=== PATIENT | female | born 1965 | race Caucasian/White ===

== ENCOUNTER 2020-08-12 17:15 | Observation (INO) ==
[2020-08-12] MEDS ORDERED: cefTRIAXone 1 GM VIAL IV ONE (17:30)
[2020-08-12] MEDS ORDERED: 0.9 % SODIUM CHLORIDE 1,000 ML IV ONE (17:32)
--- NOTE | 2020-08-12 17:37 | Emergency Department Note ---
Abdominal Pain HPI General Chief Complaint: Abdominal Pain Stated Complaint: Appendicitis Time Seen by Provider: 08/12/20 17:30 Source: patient, RN notes reviewed, old records reviewed and other Mode of arrival: ambulatory Limitations: no limitations History of Present Illness HPI Narrative: Narrative: 55-year-old female complaining of abdominal pain since Saturday. Moderate diffuse abdominal pain greatest in the right lower quadrant. No fevers or chills no nausea vomiting no hematuria dysuria or frequency no vaginal discharge or bleeding no diarrhea no anorexia. Patient was seen in minor care with a work-up including labs and abdominal CT. Abdominal CT is positive for early appendicitis. Dr. Dumont has been consulted. Patient has past surgical history of hysterectomy. Last meal was a sandwich at 2 PM. Complaint: abdominal pain Onset (ago): day(s) (3) Consistency: constant Location: RLQ Severity: moderate Quality: aching and dull Migration to: no migration Improves with: nothing Worsens with: nothing Associated symptoms: Reports nausea; Denies vomiting, diarrhea, fever, chills, constipation, dysuria, hematemesis, hematochezia, melena, hematuria, anorexia and syncope Treatments prior to arrival: other Related Data Home Medications Medication Instructions Recorded Confirmed ibuprofen 800 mg tablet 800 mg PO ONCE PRN 09/28/15 08/12/20 fluticasone furoate 100 1 inh INHALATION QDAY 07/08/18 08/12/20 mcg-vilanterol 25 mcg/dose inhalation powder Previous Rx's Medication Instructions Recorded albuterol sulfate 90 mcg/actuation 90 mcg INHALATION Q6H #18 g 10/07/15 aerosol inhaler levothyroxine 75 mcg tablet 75 mcg PO QDAY #90 tab 08/11/19 Allergies Allergy/AdvReac Type Severity Reaction Status Date / Time montelukast [From Singulair] Allergy Unknown Rash on Verified 08/12/20 11:33 face MSG Allergy Unknown Headache Uncoded 08/12/20 11:33 Review of Systems ROS ROS Narrative: Narrative: All systems ED: reviewed and negative except as stated. PFSH Narrative Patient History Narrative: Narrative: Medical/Surgical/Family History All Active Problems (Updated 08/12/20 @ 18:12 by Hipolito Altamirano MD) Appendicitis (Acute) Abdominal pain (Acute) Viral syndrome (Acute) Fatigue (Acute) Urinary frequency (Acute) History of hysterectomy for benign disease (Acute) Myocardial infarction (Acute) Psoriasis (Chronic) Migraines (Chronic) Kidney stones (Chronic) Asthma (Chronic) Acid reflux (Chronic) Medical History Abdominal pain Acid reflux 2010 Asthma 1970 Fatigue Heart trouble 2007 Kidney stones 2007 Migraines 1998 Psoriasis 1985 Urinary frequency Viral syndrome Surgical History H/O bladder repair surgery 2014 H/O heart bypass surgery 2007 History of hysterectomy 2010 Family History Grandmother-maternal Arthritis Diabetes mellitus Cerebrovascular accident (CVA) Uncle-maternal Diabetes mellitus Grandfather-paternal Essential hypertension Myocardial Infarction Cerebrovascular accident (CVA) Father Myocardial Infarction Cerebrovascular accident (CVA) Brother Myocardial Infarction Grandfather-maternal Cerebrovascular accident (CVA) Grandmother-paternal Cerebrovascular accident (CVA) Social History Smoking Status: Never smoker Alcohol Intake Frequency: does not drink Substance Use: does not use Exam Narrative Narrative: Narrative: General Limitations: no limitations General appearance: Present alert and in no apparent distress Head Head: Present atraumatic and normocephalic Eye Eye: Present normal appearance, PERRL and EOMI ENT ENT: Present normal exam and mucous membranes moist Neck Neck: Present normal inspection and full ROM Chest Chest: Present normal inspection; Absent tenderness Respiratory Respiratory: Present normal lung sounds bilaterally; Absent respiratory distress Cardiovascular Cardiovascular: Present regular rate and normal rhythm; Absent systolic murmur Adbominal Abdominal: Present soft, tenderness, normal bowel sounds and tenderness at McBurney's Point; Absent distention, guarding and rebound Extremities Extremities: Present normal inspection and full ROM; Absent tenderness, pedal edema and pretibial edema Back Back: Present normal inspection; Absent CVA tenderness (R) and CVA tenderness (L) Neurological Neurological: Present alert and oriented X3 Psychiatric Psychiatric: Present normal affect and normal mood Skin Skin: Present warm (WNL); Absent rash Course Vital Signs Vital signs: Vital Signs Temperature 99.9 F H 08/12/20 17:16 Pulse Rate 78 08/12/20 17:16 Respiratory Rate 18 08/12/20 17:16 Blood Pressure 129/85 08/12/20 17:16 Pulse Oximetry (%) 98 08/12/20 17:16 Temperature 99.9 F H 08/12/20 17:16 Pulse Rate 78 08/12/20 17:16 Respiratory Rate 18 08/12/20 17:16 Blood Pressure 129/85 08/12/20 17:16 Pulse Oximetry (%) 98 08/12/20 17:16 MDM MDM Narrative Medical decision making narrative: Narrative: Discharge Plan Patient/Caregiver Discharge Instructions 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
[2020-08-12] MEDS ORDERED: morphine 2 MG/ML VIAL IV ONE (18:03)
[2020-08-12] MEDS ORDERED: ONDANSETRON 4 MG/2 ML VIAL IV ONE (18:03)
[2020-08-12] MEDS ORDERED: morphine 4 MG/ML VIAL IV PRN (18:04)
[2020-08-12] MEDS ORDERED: PROMETHAZINE 25 MG/ML VIAL IV PRN (20:07)
[2020-08-12] MEDS ORDERED: ONDANSETRON 4 MG/2 ML VIAL IV PRN (20:07)
[2020-08-12] MEDS ORDERED: diphenhydrAMINE 25 MG CAPSULE PO PRN (20:13)
[2020-08-12] MEDS: ALBUTEROL SULFATE 200 PUFF INHALER INH SCH (20:37)
[2020-08-12] MEDS ORDERED: DOCUSATE SODIUM 100 MG CAPSULE PO SCH (21:00)
[2020-08-12] MEDS ORDERED: SENNOSIDES 1 TABLET PO SCH (21:00)
[2020-08-12] MEDS: FAMOTIDINE/PF 20 MG/2 ML VIAL IV SCH (21:02)
[2020-08-12] MEDS: 0.9 % SODIUM CHLORIDE 10 ML SYRINGE IV SCH (21:02)
[2020-08-12] MEDS: 0.9 % SODIUM CHLORIDE 1,000 ML IV SCH (21:02)
[2020-08-12] MEDS ORDERED: 0.9 % SODIUM CHLORIDE 10 ML SYRINGE IV SCH (22:00)
[2020-08-12] MEDS: HYDROmorphone 0.5 MG/0.5 ML SYRINGE IV PRN (22:05)
[2020-08-13] MEDS: ONDANSETRON 4 MG/2 ML VIAL IV PRN ×2 (01:16→08:41)
[2020-08-13] MEDS: HYDROmorphone 0.5 MG/0.5 ML SYRINGE IV PRN ×2 (01:17→04:51)
[2020-08-13] MEDS: ALBUTEROL SULFATE 200 PUFF INHALER INH SCH ×4 (03:07→20:58)
[2020-08-13] MEDS: 0.9 % SODIUM CHLORIDE 1,000 ML IV SCH ×4 (04:51→23:59)
[2020-08-13] MEDS: 0.9 % SODIUM CHLORIDE 10 ML SYRINGE IV SCH ×3 (05:21→20:24)
[2020-08-13 06:34] LABS: Basophils # (Auto) 0.08 K/mcL (0.00-0.20); Basophils % (Auto) 0.8 % (0.0-2.0); Eosinophils # (Auto) 0.06 K/mcL (0.00-0.70); Eosinophils % (Auto) 0.6 % (0.0-7.0); Hematocrit 39.6 % (36.0-48.0); Lymphocytes # (Auto) 2.45 K/mcL (1.50-4.80); Lymphocytes % (Auto) 25.4 % (15.0-49.0); Mean Cell Volume 97.5 fL (80.0-100.0); Mean Corpuscular HGB Conc 32.8 g/dL (31.0-36.0); Mean Platelet Volume 9.8 fL (7.4-10.4); Monocytes # (Auto) 0.73 K/mcL (0.10-0.90); Monocytes % (Auto) 7.6 % (1.0-12.0); Neutrophils % (Auto) 65.6 % (38.0-78.0); Platelet Count 273 K/mcL (140-440); RBC 4.06 M/mcL (4.00-5.20); Red Cell Distribution Width 13.1 % (11.5-14.5); WBC 9.7 K/mcL (4.5-11.0)
[2020-08-13 06:56] LABS: ALT/SGPT 10 U/L (<40); AST/SGOT 13 U/L (<32); Albumin 3.5 gm/dL (3.2-5.2); Albumin/Globulin Ratio 1.3 (1.0-2.3); Alkaline Phosphatase 69 U/L (39-117); Bilirubin,Direct < 0.2 mg/dL (0-0.3); Bilirubin,Total 0.3 mg/dL (0.1-1.0); Blood Urea Nitrogen 10 mg/dL (6-20); Carbon Dioxide 21 mmol/L (22-30); Chloride 104 mmol/L (96-108); Globulin 2.6 gm/dL (2.2-3.7); Glomerular Filtration Rate 103; Glucose 121 mg/dL (70-105); Lactate Dehydrogenase 145 U/L (135-225); Phosphorous 3.6 mg/dL (2.5-4.5); Triglycerides 53 mg/dL (<150); Uric Acid 2.2 mg/dL (2.5-8.0)
[2020-08-13] MEDS: FAMOTIDINE/PF 20 MG/2 ML VIAL IV SCH ×2 (08:41→20:58)
--- NOTE | 2020-08-13 09:09 | XRay Report ---
HISTORY: Preop for appendicitis, coronary artery disease FINDINGS: Lungs are mildly hyperinflated. There are linear bands of scar or discoid atelectasis in left lower lobe. There is no evidence of emphysema, pneumonia or mass. The heart is normal in size and contour. There has been a prior sternotomy with coronary bypass surgery. No congestive heart failure is present. Mediastinum and jessica are normal. IMPRESSION: Mildly hyperinflated lungs. Scar versus discoid atelectasis at the left lung base Interpreted and Authenticated by: Demario Cavazos 08/13/20
--- NOTE | 2020-08-13 09:36 | General Surg History&Physical ---
HPI History of Present Illness Patient information: Note initiated : 08/13/20 at 9:26 am Service Date, if different from initiated Date: [] Patient: Regi Alicea 55 y/o F admitted on 08/12/20 for Appendicitis. Chief Complaint: [] Chief complaint: Right lower quadrant abdominal pain History of present illness: Ms. Alicea is a 55 year old F history of onset of pain diffusely in her lower abdomen on Saturday. The pain was crampy in nature with some associated diarrhea. She had onset of nausea on Saturday with episodes of vomiting. The right lower quadrant symptoms increased and she was seen in the emergency room were her initial labs including white blood count and CRP were normal however CT was compatible with thickened appendiceal wall but no periappendiceal edema. She was admitted last evening and has been on antibiotics. She is scheduled for appendectomy this morning. Patient and her were counseled for the procedure. Constitutional Constitutional: Present anorexia and malaise EENT Eyes: Absent loss of vision and pain Ears: Absent decreased hearing and tinnitus Nose, mouth and throat: Present headache(s); Absent abnormal hearing, disequilibrium, dysphagia and hoarseness Cardiovascular Cardiovascular: Absent chest pain, chest pain at rest, chest pain with activity, dyspnea on exertion, edema, irregular heart rhythm, leg edema, lightheadedness, palpatations, paroxysmal nocturnal dyspnea, pedal edema and rapid heart rate Respiratory Respiratory: Absent cough, dyspnea, wheezing and chest congestion Gastrointestinal Gastrointestinal: Present abdominal pain, cramping, diarrhea, loose stools, nausea and vomiting; Absent heartburn Genitourinary Genitourinary: Absent difficulty voiding, nocturia, urinary frequency, urinary hesitancy, urinary incontinence and urinary urgency Musculoskeletal Musculoskeletal: Present arthralgias, muscle cramps and myalgias; Absent abnormal gait, muscle weakness and numbness Integumentary Integumentary: Absent acne, alopecia and pruritus Neurological Neurological: Present headache(s), restless legs and tingling; Absent abnormal gait, dizziness, numbness, sensory deficit and tremor(s) Psychiatric Psychiatric: Present abnormal sleep pattern; Absent mood swings and panic attacks Endocrine Endocrine: Absent fatigue, heat intolerance, polydipsia, polyphagia and polyuria Hematologic/Lymphatic Hematologic/Lymphatic: Absent easy bleeding, easy bruising and lymphadenopathy Allergic/Immunologic Allergic/Immunologic: Absent tongue swelling, throat swelling, itchy eyes, u ticaria, wheezing and lip swelling PFSH PFSH All Active Problems (Updated 08/13/20 @ 09:35 by Gurwinder Dumont MD) Acute appendicitis (Acute) Appendicitis (Acute) Abdominal pain (Acute) Viral syndrome (Acute) Fatigue (Acute) Urinary frequency (Acute) History of hysterectomy for benign disease (Acute) Myocardial infarction (Acute) Psoriasis (Chronic) Migraines (Chronic) Kidney stones (Chronic) Asthma (Chronic) Acid reflux (Chronic) Medical History Abdominal pain Acid reflux 2010 Asthma 1970 Fatigue Heart trouble 2007 Kidney stones 2007 Migraines 1997 Psoriasis 1985 Urinary frequency Viral syndrome Surgical History H/O bladder repair surgery 2014 H/O heart bypass surgery 2007 History of hysterectomy 2010 Family History Grandmother-maternal Arthritis Diabetes mellitus Cerebrovascular accident (CVA) Uncle-maternal Diabetes mellitus Grandfather-paternal Essential hypertension Myocardial Infarction Cerebrovascular accident (CVA) Father Myocardial Infarction Cerebrovascular accident (CVA) Brother Myocardial Infarction Grandfather-maternal Cerebrovascular accident (CVA) Grandmother-paternal Cerebrovascular accident (CVA) Social History marital status: smoking status: Never smoker alcohol intake frequency: does not drink substance use type: does not use MEDS/ALLERGIES Home Medications and Allergies Home Medications Medication Instructions Recorded Confirmed Type ibuprofen 800 mg tablet 800 mg PO ONCE PRN 09/28/15 08/12/20 History albuterol sulfate 90 mcg/actuation 90 mcg INHALATION Q6H #18 g 10/07/15 08/12/20 Rx aerosol inhaler fluticasone furoate 100 1 inh INHALATION QDAY 07/08/18 08/12/20 History mcg-vilanterol 25 mcg/dose inhalation powder levothyroxine 75 mcg tablet 75 mcg PO QDAY #90 tab 08/11/19 08/12/20 Rx Allergies Allergy/AdvReac Type Severity Reaction Status Date / Time montelukast [From Singulair] Allergy Unknown Rash on Verified 08/12/20 11:33 face MSG Allergy Unknown Headache Uncoded 08/12/20 11:33 Physical Examination Vital Signs Vital signs: Temp Pulse Resp BP Pulse Ox 97.8 F 55 L 16 105/67 95 08/13/20 07:09 08/13/20 07:09 08/13/20 07:09 08/13/20 07:09 08/13/20 07:09 General physical appearance General physical exam: well developed, well nourished, no distress and moderate pain Eyes Eye exam: PERRL and normal ocular movement ENT ENT exam: normal pinna, normal nares, normal mucosa, no hearing loss and no congestion Head Head exam IM: Present atraumatic, normal inspection and normocephalic Neck Neck exam: no masses, no bruits, trachea midline, no lymphadenopathy and no venous distension Cardiovascular Cardiovascular exam IM: Present normal rate and rhythm, RRR, +S1 and +S2; Absent bradycardia and JVD Respiratory Respiratory exam: normal expansion, normal respiratory effort and clear to auscultation Abdomen Abdomen: Present soft, tender (Right lower quadrant and suprapubic area) and bowel sounds Integumentary Integumentary: Present no rash, no growths and no abnormal pigmentation Neurologic Neurologic: Present normal coordination and normal sensation Musculoskeletal Musculoskeletal: Present normal gait and normal posture Psychiatric Psychiatric: Present oriented to time, oriented to person, oriented to place, speech is normal and memory intact Results Labs Result diagrams: 08/13/20 05:25 08/13/20 05:25 Labs: Abnormal lab results 08/13/20 Range/Units 05:25 Carbon Dioxide 21 L (22-30) mmol/L Glucose 121 H (70-105) mg/dL Uric Acid 2.2 L (2.5-8.0) mg/dL Calcium 8.0 L (8.6-10.4) mg/dL Diabetes panel 08/13/20 Range/Units 05:25 Sodium 134 (133-145) mmol/L Potassium 4.1 (3.3-5.1) mmol/L Chloride 104 (96-108) mmol/L Carbon Dioxide 21 L (22-30) mmol/L BUN 10 (6-20) mg/dL Creatinine 0.6 (0.6-1.1) mg/dL Glucose 121 H (70-105) mg/dL Calcium 8.0 L (8.6-10.4) mg/dL AST 13 (<32) U/L ALT 10 (<40) U/L Alkaline Phosphatase 69 (39-117) U/L Total Protein 6.1 (5.9-8.4) gm/dL Albumin 3.5 (3.2-5.2) gm/dL Triglycerides 53 (<150) mg/dL Calcium panel 08/13/20 Range/Units 05:25 Calcium 8.0 L (8.6-10.4) mg/dL Phosphorus 3.6 (2.5-4.5) mg/dL Albumin 3.5 (3.2-5.2) gm/dL Pituitary panel 08/13/20 Range/Units 05:25 Sodium 134 (133-145) mmol/L Potassium 4.1 (3.3-5.1) mmol/L Chloride 104 (96-108) mmol/L Carbon Dioxide 21 L (22-30) mmol/L BUN 10 (6-20) mg/dL Creatinine 0.6 (0.6-1.1) mg/dL Glucose 121 H (70-105) mg/dL Calcium 8.0 L (8.6-10.4) mg/dL Adrenal panel 08/13/20 Range/Units 05:25 Sodium 134 (133-145) mmol/L Potassium 4.1 (3.3-5.1) mmol/L Chloride 104 (96-108) mmol/L Carbon Dioxide 21 L (22-30) mmol/L BUN 10 (6-20) mg/dL Creatinine 0.6 (0.6-1.1) mg/dL Glucose 121 H (70-105) mg/dL Calcium 8.0 L (8.6-10.4) mg/dL Total Bilirubin 0.3 (0.1-1.0) mg/dL AST 13 (<32) U/L ALT 10 (<40) U/L Alkaline Phosphatase 69 (39-117) U/L Total Protein 6.1 (5.9-8.4) gm/dL Albumin 3.5 (3.2-5.2) gm/dL All other labs normal. A/P Assessment and plan (1) Acute appendicitis: Status: Acute Qualifiers: Acute appendicitis type: with localized peritonitis Appendicitis gangrene presence: without gangrene Appendicitis perforation presence: without perforation Appendicitis abscess presence: without abscess Qualified Code(s): K35.30 - Acute appendicitis with localized peritonitis, without perforation or gangrene (2) Acid reflux: Status: Chronic Comment: 2010 Qualifiers: Esophagitis presence: esophagitis presence not specified Qualified Code(s): K21.9 - Gastro-esophageal reflux disease without esophagitis Narrative A/P Narrative: Patient is counseled for laparoscopic appendectomy It will be performed later today. Time Spent With Patient Time: Total time spent is greater than 50% in coordination of care (as documented) at patient's floor/unit and/or counseling patient:
[2020-08-13] MEDS ORDERED: ONDANSETRON 4 MG/2 ML VIAL ONE (10:25)
[2020-08-13] MEDS ORDERED: MIDAZOLAM 5 MG/5 ML VIAL ONE (10:25)
[2020-08-13] MEDS ORDERED: SUGAMMADEX SODIUM 200 MG/2 ML VIAL IV ONE (10:25)
[2020-08-13] MEDS ORDERED: KETAMINE 100 MG/ML ML ONE (10:25)
[2020-08-13] MEDS ORDERED: LIDOCAINE HCL/PF 100 MG/5 ML SYRINGE IV ONE (10:25)
[2020-08-13] MEDS ORDERED: ROCURONIUM 10 MG/ML ML IV ONE (10:25)
[2020-08-13] MEDS ORDERED: fentaNYL 100 MCG/2 ML VIAL IV ONE (10:25)
[2020-08-13] MEDS ORDERED: PROMETHAZINE 25 MG/ML VIAL ONE (10:25)
[2020-08-13] MEDS ORDERED: DEXAMETHASONE 10 MG/ML VIAL ONE (10:25)
[2020-08-13] MEDS ORDERED: PROPOFOL 200 MG/20 ML VIAL IV ONE (10:25)
[2020-08-13] MEDS ORDERED: SUCCINYLCHOLINE 20 MG/ML ML IV ONE (10:25)
[2020-08-13] MEDS ORDERED: PIPERACILLIN SODIUM/TAZOBACTAM 3.375 GM in DEXTROSE 5% IN WATER 50 ML IV SCH (11:00)
[2020-08-13] MEDS ORDERED: ATROPINE SULFATE 0.4 MG/ML VIAL IV PRN (11:01)
[2020-08-13] MEDS ORDERED: METOPROLOL TARTRATE 5 MG/5 ML VIAL IV PRN (11:01)
[2020-08-13] MEDS ORDERED: FLUMAZENIL 0.1 MG/ML ML IV PRN (11:01)
[2020-08-13] MEDS ORDERED: NALOXONE HCL 0.4 MG/ML VIAL IV PRN (11:01)
[2020-08-13] MEDS ORDERED: METHOCARBAMOL 1,000 MG/10 ML VIAL IV PRN (11:01)
[2020-08-13] MEDS ORDERED: IPRATROPIUM/ALBUTEROL 3 ML AMPUL.NEB NEB PRN (11:01)
[2020-08-13] MEDS ORDERED: HYDROmorphone 0.5 MG/0.5 ML SYRINGE IV PRN ×2 (11:01→12:09)
[2020-08-13] MEDS ORDERED: ACETAMINOPHEN 800 MG/80 ML BAG IV ONE (11:01)
[2020-08-13] MEDS ORDERED: MEPERIDINE 25 MG/ML VIAL IV PRN (11:01)
[2020-08-13] MEDS ORDERED: fentaNYL 100 MCG/2 ML VIAL IV PRN (11:01)
[2020-08-13] MEDS ORDERED: ePHEDrine 50 MG/ML AMPUL IV PRN (11:01)
[2020-08-13] MEDS ORDERED: PROMETHAZINE 25 MG/ML VIAL IV PRN ×2 (11:01→12:09)
[2020-08-13] MEDS ORDERED: diphenhydrAMINE 50 MG/ML VIAL IV PRN (11:01)
--- NOTE | 2020-08-13 11:26 | Brief Operative Note ---
Brief Operative Note Date of procedure: 08/13/20 Pre-op diagnosis: acute appendicitis Post-op diagnosis: other (acute appendicitis) Procedure: laparoscopic appendectomy Grafts/Implants: No Anesthesia: GETA Findings: mild inflammation of appendix Complications: none Surgeon: Gurwinder Dumont Specimens Removed/Pathology: other (appendix) Condition: stable Disposition: PACU
[2020-08-13] MEDS ORDERED: oxyCODONE HCL 5 MG TABLET PO PRN (12:09)
[2020-08-13] MEDS ORDERED: ONDANSETRON 4 MG/2 ML VIAL IV PRN (12:09)
[2020-08-13] MEDS: PIPERACILLIN SODIUM/TAZOBACTAM 3.375 GM in DEXTROSE 5% IN WATER 50 ML IV SCH ×2 (17:37→23:58)
[2020-08-13] MEDS ORDERED: IBUPROFEN 200 MG TABLET PO PRN (17:48)
[2020-08-13] MEDS ORDERED: IBUPROFEN 600 MG TABLET PO ONE (18:08)
[2020-08-13] MEDS ORDERED: diphenhydrAMINE 25 MG CAPSULE PO PRN (21:00)
[2020-08-14] MEDS: ALBUTEROL SULFATE 200 PUFF INHALER INH SCH ×2 (04:42→10:59)
[2020-08-14] MEDS: 0.9 % SODIUM CHLORIDE 1,000 ML IV SCH ×2 (04:43→13:16)
[2020-08-14] MEDS: 0.9 % SODIUM CHLORIDE 10 ML SYRINGE IV SCH ×2 (04:44→14:20)
[2020-08-14] MEDS: PIPERACILLIN SODIUM/TAZOBACTAM 3.375 GM in DEXTROSE 5% IN WATER 50 ML IV SCH ×2 (06:11→12:01)
[2020-08-14] MEDS ORDERED: LEVOTHYROXINE 75 MCG TABLET PO SCH (07:30)
[2020-08-14] MEDS: FAMOTIDINE/PF 20 MG/2 ML VIAL IV SCH (09:05)
--- NOTE | 2020-08-14 14:12 | Discharge Summary ---
Discharge Provider Provider Patient information: Note initiated : 08/14/20 at 2:07 pm Service Date, if different from initiated Date: [] Patient: Regi Alicea 55 y/o F admitted on 08/12/20 for Appendicitis. Chief Complaint: [] Date of admission: 08/12/20 19:46 Discharge date: 08/14/20 Primary care physician: Wolfgang Cox MD Admitting clinician: Gurwinder Dumont Attending physician on admission: Gurwinder Dumont Consults: 08/12/20 Consult to Physician [CONS] Stat Comment: Consulting Provider: Gurwinder Dumont Reason For Exam: Physician to Consult Attending physician on discharge: Gurwinder Dumont Discharging clinician: Gurwinder Dumont COURSE Hospital Course Hospital course: 55-year-old female who presents with a 3-day history of abdominal pain across the epigastrium and into her shoulder. She had nausea vomiting. White blood count and CRP were normal. CT of the abdomen and pelvis was compatible with early appendicitis. She was admitted and observed overnight. She had laparoscopic appendectomy on yesterday. She states that all of her symptoms have resolved except for mild incisional pain. She is tolerated soft diet without difficulty and is stable for discharge home. Discharge diagnosis: Acute appendicitis Reason for admission: Acute appendicitis Procedures: Laparoscopic appendectomy Pertinent studies/significant findings: CT of abdomen and pelvis with contrast Complications: None Time Spent with Patient Time attestation: Total time spent providing and/or coordinating discharge services: Physical Examination Vital Signs Vital signs: Temp Pulse Resp BP Pulse Ox 98.3 F 69 16 104/67 95 08/14/20 11:35 08/14/20 11:35 08/14/20 11:35 08/14/20 11:35 08/14/20 11:35 General physical appearance General physical exam: well developed, well nourished, no distress and moderate pain Eyes Eye exam: PERRL and normal ocular movement ENT ENT exam: normal mucosa and no hearing loss Head Head exam IM: Present atraumatic, normal inspection and normocephalic Neck Neck exam: no masses, no bruits, trachea midline, no lymphadenopathy and no venous distension Cardiovascular Cardiovascular exam IM: Present normal rate and rhythm, RRR and +S1; Absent JVD Respiratory Respiratory exam: normal expansion, normal respiratory effort and clear to auscultation Abdomen Abdomen: Present soft and tender (Mild tenderness in area of port sites) Neurologic Neurologic: Present normal coordination and normal sensation Musculoskeletal Musculoskeletal: Present normal gait and normal posture Psychiatric Psychiatric: Present oriented to time, oriented to person, oriented to place, speech is normal and memory intact Discharge Plan Patient/Caregiver Discharge Instructions Activity: increase activity as tolerated Diet: Regular Diet Prescriptions: No Action levothyroxine [Synthroid] 75 mcg tablet 75 mcg PO QDAY Qty: 90 RF: 3 albuterol sulfate [ProAir HFA] 90 mcg/actuation HFA aerosol inhaler 90 mcg INHALATION Q6H Qty: 18 RF: 2 ibuprofen 800 mg tablet 800 mg PO ONCE PRN (Reason: Headache) RF: 0 Breo Ellipta 100-25 mcg/dose blister with device 1 inh INHALATION QDAY RF: 0 Follow Up Plan Follow up with: Gurwinder Dumont MD [Physician] - (Call office for appointment in 2 weeks) Wolfgang Cox MD [Primary Care Provider] - Patient Disposition: Home, Self-Care Prognosis: Good Rehab Potential: Good I certify that the patient requires SNF services: No Overall status at discharge: patient is progressing back to baseline Discharge Orders: Discharge Order (Routine); Ordered 08/14/20 Ordered By: Gurwinder Dumont Pending Pending Pending: Resuscitation Status Full Code Diet Regular Diet Start SatAug 14 0830 Albuterol Sulfate (Albuterol Sulfate 200 Puff Inhaler) 1 puff INH Q6H [facility] Last Admin: 08/14/20 10:59 Dose: Not Given Documented by: Admin: 08/14/20 04:42 Dose: Not Given Documented by: Admin: 08/13/20 20:58 Dose: Not Given Documented by: Admin: 08/13/20 17:02 Dose: Not Given Documented by: COLTON Famotidine (Famotidine/Pf 20 Mg/2 Ml Vial) 20 mg IV Q12 [facility] Last Admin: 08/14/20 09:05 Dose: 20 mg Documented by: Admin: 08/13/20 20:58 Dose: 20 mg Documented by: COURTNEY Sodium Chloride (Sodium Chloride 0.9%) 1,000 mls @ 125 mls/hr IV .Q8H [facility] Last Admin: 08/14/20 13:16 Dose: Not Given Documented by: Admin: 08/14/20 04:43 Dose: Not Given Documented by: Admin: 08/13/20 23:59 Dose: 125 mls/hr Documented by: Infusion: 08/13/20 23:20 Dose: 125 mls/hr Documented by: Admin: 08/13/20 15:20 Dose: 125 mls/hr Documented by: Infusion: 08/13/20 15:20 Dose: 125 mls/hr Documented by: Admin: 08/13/20 12:20 Dose: 125 mls/hr Documented by: COLTON Piperacillin Sod/Tazobactam (Sod 3.375 gm/ Dextrose) 50 mls @ 100 mls/hr IV Q6H ODILON; Protocol Last Infusion: 08/14/20 13:57 Dose: 0 mls/hr Documented by: Admin: 08/14/20 12:01 Dose: 100 mls/hr Documented by: Infusion: 08/14/20 09:22 Dose: 0 mls/hr Documented by: Admin: 08/14/20 06:11 Dose: 100 mls/hr Documented by: Infusion: 08/14/20 00:28 Dose: 100 mls/hr Documented by: Admin: 08/13/20 23:58 Dose: 100 mls/hr Documented by: Infusion: 08/13/20 18:07 Dose: 100 mls/hr Documented by: Admin: 08/13/20 17:37 Dose: 100 mls/hr Documented by: COLTON Ibuprofen (Ibuprofen 200 Mg Tablet) 400 mg PO Q6HP PRN; Protocol PRN Reason: Per Pain Protocol Last Admin: 08/13/20 18:02 Dose: 400 mg Documented by: COLTON Levothyroxine Sodium (Levothyroxine 75 Mcg Tablet) 75 mcg PO ACB ODILON Last Admin: 08/14/20 07:03 Dose: 75 mcg Documented by: COLTON Fluticasone Furoate- Vilanterol [Breo Ellipta] 100 Mcg/25 Mcg Inhaler 1 dose INH DAILY ODILON Last Admin: 08/14/20 09:04 Dose: 1 dose Documented by: COLTON Sodium Chloride (0.9 % Sodium Chloride 10 Ml Syringe) 10 ml IV Q8 ODILON Last Admin: 08/14/20 04:44 Dose: Not Given Documented by: Admin: 08/13/20 20:24 Dose: Not Given Documented by: Admin: 08/13/20 14:52 Dose: Not Given Documented by: COLTON Shift Summary 08/14/20 04:45 Shift Summary by Anjali Elliott Diagnosis/Status: OBS Status, Appendicitis Brief History: Lap Appy Orientation: Alert and Oriented Times Four, Able to Make Needs Known, Uses Call Light Appropriately Ambulation/Toiletin SBA/IV Pole Assistance/Voids via Restroom IV: NS infusing at 125 ml/hr right forearm, Zosyn q 6 Pain/VS: Denies PRN pain medication. Skin: 3 lap sites with meet/tegaderm to abdomen. Diet: Regular - Denies Nausea Discharge Plan: Discharge to home with spouse, no concerns or needs. Initialized on 08/14/20 04:45 - END OF NOTE
--- NOTE | 2020-08-15 10:46 | Operative Note ---
DATE OF OPERATION: 08/13/2020 PREOPERATIVE DIAGNOSIS: Acute appendicitis. POSTOPERATIVE DIAGNOSIS: Acute appendicitis. PROCEDURE: Laparoscopic appendectomy. SURGEON: Gurwinder Dumont M.D. FINDINGS: Mild inflammation of the appendix. DESCRIPTION OF PROCEDURE: Under general anesthesia, the patient's abdomen was prepped and draped in a sterile field. Supraumbilical incision was made and Veress needle was inserted. Abdomen was insufflated with 2 liters of CO2. A 12 mm port was placed. Laparoscope was placed. Under videoscopic guidance, a 5 mm port was placed in the suprapubic midline and a 12 mm port in the left lower quadrant. The patient was placed in deep Trendelenburg position and rotated to the left. The appendix was found at the base of the cecum. It was mildly thickened and indurated with slight erythema, but no major separation. The appendix was grasped and placed on stretch. A window was made in the mesoappendix at the base. The base of the appendix was transected using Endo GREGORY stapler. Mesoappendix was transected using Endo GREGORY stapler. Hemostasis in the mesoappendix was assisted with electrocautery. The appendiceal stump did not show evidence of bleeding. Irrigation was carried out. The appendix was placed in an Endopouch and retrieved. Inspection in the pelvis did not reveal any free fluid. Inspection of the upper abdomen was unremarkable. There was no significant adenopathy in the ileocolonic mesentery. CO2 was allowed to escape from the abdomen and the ports were removed. The fascia at the umbilicus was closed with interrupted 0 Vicryl. Skin incisions were closed with meet. The patient tolerated the procedure well. Tegaderm dressings were placed. She was awakened and transferred to the postanesthetic care unit in stable, satisfactory condition. LCS:gia Job ID: [id number] Doc ID: [id number] Gurwinder Dumont M.D.
--- NOTE | 2020-08-16 13:10 | Surgical Pathology Report ---
Histology Microscopic Diagnosis Specimen A- APPENDIX, APPENDECTOMY: --- SUPPURATIVE ACUTE APPENDICITIS. (ACP:adj) Procedural Impression Appendicitis. Gross Description Received in formalin designated appendix, is a christensen-cai appendix. It is 8.4 cm in length by up to 0.8 cm in diameter. It has up to 2.7 cm of cai attached fat. The resection margin is stapled. This is inked black. Cut surfaces are pink-cai. There is christensen viscous fluid. Grossly there are no areas of perforation identified. Technical Expert sections are submitted in one cassette. (SCB:adj) Electronically Signed Oscar Cavazos MD, FCAP Electronically Signed 08/16/2020 13:09
== END 2020-08-14 14:35 | disposition home or self-care (01) ==
LOC: MEDSUR 17:15 → ED 17:15 → MEDSUR 19:46
PROVIDERS: ADMIT Family Medicine Adult Medicine; ATTEND Family Medicine Adult Medicine